=== PATIENT | female | born 1995 | race Caucasian/White ===

== ENCOUNTER 2019-11-23 20:34 | Emergency (ER) | payer BC ==
[2019-11-23] MEDS ORDERED: diphenhydrAMINE 25 MG Cap PO ONE (21:24)
[2019-11-23] MEDS ORDERED: methylPREDNISolone Sodium Succinate 40 MG/1 ML SDV IM ONE (21:24)
--- NOTE | 2019-11-23 21:31 | EDM.PDOC ---
ED HPI GENERAL MEDICAL PROBLEM - General Chief Complaint: Allergic Reaction Stated Complaint: HIVES ARMS,BACK,LEGS Time Seen by Provider: 11/23/19 21:19 Source of Information: Reports: Patient, RN Notes Reviewed History Limitations: Reports: No Limitations - History of Present Illness INITIAL COMMENTS - FREE TEXT/NARRATIVE: 24-year-old female presents emergency department a complaint of hives, she is never had this particular rash before it is quite itchy but no difficulty breathing no difficulty swallowing she is not sure what she has been exposed to but she has hives arms legs trunk front and back - Related Data Allergies Allergy/AdvReac Type Severity Reaction Status Date / Time amoxicillin Allergy Agitation Verified 11/23/19 21:03 avocado Allergy Diarrhea Verified 11/23/19 21:03 Home Meds: Home Meds Spironolactone 50 mg PO DAILY 11/23/19 [History] Past Medical History HEENT History: Reports: Impaired Vision Gastrointestinal History: Reports: GERD Musculoskeletal History: Reports: Fracture Neurological History: Reports: Migraines Psychiatric History: Reports: Depression Hematologic History: Reports: Iron Deficiency - Infectious Disease History Infectious Disease History: Reports: Chicken Pox - Past Surgical History HEENT Surgical History: Reports: Other (See Below) Other HEENT Surgeries/Procedures: lymphnode removed from neck Social & Family History - Tobacco Use Smoking Status *Q: Never Smoker - Caffeine Use Caffeine Use: Reports: Coffee - Recreational Drug Use Recreational Drug Use: No ED ROS ALLERGIC REACTION - Review of Systems Review Of Systems: See Below Constitutional: Reports: No Symptoms Respiratory: Reports: No Symptoms Cardiovascular: Reports: No Symptoms Skin: Reports: Bruising, Pruritis, Erythema ED EXAM GENERAL NO PERIP PULSE - Physical Exam Exam: See Below Exam Limited By: No Limitations General Appearance: Alert, WD/WN, No Apparent Distress Throat/Mouth: Normal Inspection, Normal Lips, Normal Teeth, Normal Gums, Normal Oropharynx, Normal Voice, No Airway Compromise Respiratory/Chest: No Respiratory Distress, Lungs Clear, Normal Breath Sounds, No Accessory Muscle Use, Chest Non-Tender Cardiovascular: Regular Rate, Rhythm, No Murmur Skin Exam: Warm, Other (urticaria arms trunk posterior anterior and legs) Course - Vital Signs Last Recorded V/S: Last Vital Signs Temp 97.7 F 11/23/19 21:05 Pulse 70 11/23/19 21:05 Resp 14 11/23/19 21:05 BP 143/50 H 12/24/19 21:05 Pulse Ox 100 11/23/19 21:05 - Orders/Labs/Meds Meds: Medications Discontinued Medications Generic Name Dose Route Start Last Admin Trade Name Vijay PRN Reason Stop Dose Admin Diphenhydramine HCl 25 mg 11/23/19 21:24 Benadryl PO 11/23/19 21:25 ONETIME ONE Methylprednisolone Sodium Succinate 40 mg 11/23/19 21:24 Solu-Medrol IM 11/23/19 21:25 ONETIME ONE Departure - Departure Time of Disposition: 21:29 Disposition: Home, Self-Care 01 Condition: Fair Clinical Impression: Hives - Discharge Information Instructions: Hives, [id number], Hives Referrals: PCP,None [Primary Care Provider] - Additional Instructions: Prescription written for prednisone 20 mg once a day start this medication tomorrow, prescription was also provided for injectable epinephrine this can be used as a rescue device if you get hives with shortness of breath and throat swelling, please discuss this with your primary care upon return home, call return to the emergency department worsening of symptoms Sepsis Event Note - Evaluation Sepsis Screening Result: No Definite Risk - Focused Exam Vital Signs: Vital Signs Temp Pulse Resp BP Pulse Ox 11/23/19 21:05 97.7 F 70 14 143/50 H 100 11/23/19 20:52 97.7 F 70 14 143/50 H 100 Date Exam was Performed: 11/23/19 Time Exam was Performed: 21:25 - Assessment/Plan Plan: Assessment Acuity = acute Site and laterality = hives Etiology = unknown Manifestations = pruritus Location of injury = Home Lab values = none Plan Treated in the emergency department combination Benadryl Solu-Medrol which did provide some relief, prescription written for prednisone 20 mg once a day for 3 days also prescription provided for injectable epinephrine 0.3 mg IM x1 follow- up with primary care upon return home This note was dictated using [employer] voice recognition software please call with any questions on syntax or grammar.
== END 2019-11-23 22:10 | disposition home or self-care (01) ==
LOC: JP.ED 20:34
DX: L50.9 Urticaria, unspecified (principal); H54.7 Unspecified visual loss; K21.9 Gastro-esophageal reflux disease without esophagitis; Z88.1 Allergy status to other antibiotic agents; Z88.8 Allergy status to other drugs, medicaments and biological substances; Z79.899 Other long term (current) drug therapy
CPT/HCPCS: 96372; 99282; A9270; J2920